=== PATIENT | female | born 1960 | race American Indian/Alaskan Native ===

== ENCOUNTER 2017-06-27 11:30 | Emergency (ER) | payer MEDICAID ==
[2017-06-27 11:38] VITALS: BP 165/96
--- NOTE | 2017-06-27 12:08 | Emergency Department Report ---
Blank Doc - Documentation Documentation: is a 57-year-old [place] female who is presenting with a right lower extruded pain. Patient states that the pain is been present for roughly 4 days as a burning sensation from the thigh all the way down to her ankle. Patient states she has some mild swelling to the ankle and lower calf. Patient denies any trauma or recent travel. Patient does however smoke which is her main risk factor for DVT. Patient was seen in urgent care prior to arrival and had an ultrasound done that indicated that she may have a DVT however no report was sent with the patient except for a subjective note stating that there was worry of an unspecified DVT. The patient denies any chest pain shortness of breath. Patient will have repeat ultrasound he did confirm location of thrombosis laboratory studies be done patient be given pain meds. Re
[2017-06-27] MEDS ORDERED: ZOFRAN IV ONE (12:09)
[2017-06-27] MEDS ORDERED: MORPHINE IV ONE (12:09)
[2017-06-27] MEDS ORDERED: TORADOL IV ONE (12:09)
[2017-06-27 12:30] LABS: Basophils % (Auto) 0.3 % (0.0-1.8); Eosinophils % (Auto) 0.6 % (0.0-4.3); Hematocrit 40.1 % (30.3-42.9); Hemoglobin 13.6 gm/dl (10.1-14.3); Lymphocytes # (Auto) 2.4 K/mm3 (1.2-5.4); Lymphocytes % (Auto) 39.9 % (13.4-35.0); Mean Corpuscular HGB Conc 34 % (30-34); Mean Corpuscular Hemoglobin 31 pg (28-32); Mean Corpuscular Volume 91 fl (79-97); Monocytes # (Auto) 0.6 K/mm3 (0.0-0.8); Monocytes % (Auto) 9.7 % (0.0-7.3); Platelet Count 223 K/mm3 (140-440); Red Blood Count 4.39 M/mm3 (3.65-5.03); Red Cell Distribution Width 15.2 % (13.2-15.2)
[2017-06-27 12:41] LABS: INR 0.79 (0.87-1.13)
[2017-06-27 12:50] LABS: BUN/Creatinine Ratio 14; Blood Urea Nitrogen 14 mg/dL (7-17); Calcium 9.5 mg/dL (8.4-10.2); Hemolysis Index 61
--- NOTE | 2017-06-27 13:53 | Emergency Department Report ---
ED Extremity Problem HPI - General Chief complaint: Extremity Injury, Lower Stated complaint: FOOT SWELLING Time Seen by Provider: 06/27/17 11:50 Source: patient Mode of arrival: Wheelchair Limitations: No Limitations - History of Present Illness Initial comments: patient is a 57-year-old Greek female who is presenting with a right lower extruded pain. Patient states that the pain is been present for roughly 4 days as a burning sensation from the thigh all the way down to her ankle. Patient states she has some mild swelling to the ankle and lower calf. Patient denies any trauma or recent travel. Patient does however smoke which is her main risk factor for DVT. Patient was seen in urgent care prior to arrival and had an ultrasound done that indicated that she may have a DVT however no report was sent with the patient except for a subjective note stating that there was worry of an unspecified DVT. The patient denies any chest pain shortness of breath. Severity scale (0 -10): 8 - Related Data Previous Rx's Medication Instructions Recorded Last Taken Type Butalb/Acetamin/Caff 50-325-40 1 each PO Q8H PRN #10 tablet 09/24/13 Unknown Rx [Fioricet] predniSONE [Deltasone] 20 mg PO QDAY #5 tab 04/09/14 Unknown Rx ALBUTEROL Inhaler [ProAir HFA 2 puff IH QID PRN #1 inhalation 02/08/15 Unknown Rx Inhaler] Azithromycin [Zithromax TAB] 250 mg PO QDAY #4 tablet 02/08/15 Unknown Rx Erythromycin [Erythromycin Ophth 1 inch OU TID #1 tube 02/08/15 Unknown Rx Oint] Ibuprofen [Motrin 600 MG tab] 600 mg PO Q8H PRN #30 tablet 04/21/15 Unknown Rx Nitrofurantoin [place]/M-Cryst 100 mg PO Q12HR #20 capsule 04/21/15 Unknown Rx [Macrobid CAP] Phenazopyridine [Pyridium] 200 mg PO BID #6 tab 04/21/15 Unknown Rx Acetaminophen/Codeine [Tylenol #3] 1 tab PO Q6H PRN #10 tab 05/07/15 Unknown Rx Cephalexin [Keflex] 500 mg PO Q6HR #20 capsule 05/07/15 Unknown Rx Ibuprofen [Motrin 800 MG tab] 800 mg PO Q8HR PRN #30 tablet 05/07/15 Unknown Rx Apixaban [Eliquis] 5 mg PO BID 30 Days tablet 06/27/17 Unknown Rx HYDROcodone/APAP 5-325 [[place] 1 each PO Q8H PRN #21 tablet 06/27/17 Unknown Rx 5-325 mg TAB] methOCARBAMOL [Robaxin TAB] 500 mg PO Q6H PRN #15 tablet 06/27/17 Unknown Rx Allergies Allergy/AdvReac Type Severity Reaction Status Date / Time diphenhydramine HCl AdvReac Nausea Verified 05/07/15 15:29 [From Benadryl] ED Review of Systems ROS: Stated complaint: FOOT SWELLING Other details as noted in HPI Comment: All other systems reviewed and negative ED Past Medical Hx - Past Medical History Hx Hypertension: Yes Hx Arthritis: Yes (RA) Additional medical history: anemia,neuropathy - Surgical History Additional Surgical History: firboid removal, hysterectomy - Social History Smoking Status: Current Every Day Smoker Substance Use Type: None - Medications Home Medications: Home Medications Medication Instructions Recorded Confirmed Last Taken Type Butalb/Acetamin/Caff 50-325-40 1 each PO Q8H PRN #10 tablet 09/24/13 02/08/15 Unknown Rx [Fioricet] predniSONE [Deltasone] 20 mg PO QDAY #5 tab 04/09/14 02/08/15 Unknown Rx ALBUTEROL Inhaler [ProAir HFA 2 puff IH QID PRN #1 inhalation 02/08/15 Unknown Rx Inhaler] Azithromycin [Zithromax TAB] 250 mg PO QDAY #4 tablet 02/08/15 Unknown Rx Erythromycin [Erythromycin Ophth 1 inch OU TID #1 tube 02/08/15 Unknown Rx Oint] Ibuprofen [Motrin 600 MG tab] 600 mg PO Q8H PRN #30 tablet 04/21/15 Unknown Rx Nitrofurantoin [place]/M-Cryst 100 mg PO Q12HR #20 capsule 04/21/15 Unknown Rx [Macrobid CAP] Phenazopyridine [Pyridium] 200 mg PO BID #6 tab 04/21/15 Unknown Rx Acetaminophen/Codeine [Tylenol #3] 1 tab PO Q6H PRN #10 tab 05/07/15 Unknown Rx Cephalexin [Keflex] 500 mg PO Q6HR #20 capsule 05/07/15 Unknown Rx Ibuprofen [Motrin 800 MG tab] 800 mg PO Q8HR PRN #30 tablet 05/07/15 Unknown Rx Apixaban [Eliquis] 5 mg PO BID 30 Days tablet 06/27/17 Unknown Rx HYDROcodone/APAP 5-325 [[place] 1 each PO Q8H PRN #21 tablet 06/27/17 Unknown Rx 5-325 mg TAB] methOCARBAMOL [Robaxin TAB] 500 mg PO Q6H PRN #15 tablet 06/27/17 Unknown Rx ED Physical Exam - General Limitations: No Limitations General appearance: alert, in no apparent distress - Head Head exam: Present: atraumatic, normocephalic - Eye Eye exam: Present: normal appearance - ENT ENT exam: Present: mucous membranes moist - Neck Neck exam: Present: normal inspection - Respiratory Respiratory exam: Present: normal lung sounds bilaterally. Absent: respiratory distress - Cardiovascular Cardiovascular Exam: Present: regular rate, normal rhythm. Absent: systolic murmur, diastolic murmur, rubs, gallop - GI/Abdominal GI/Abdominal exam: Present: soft, normal bowel sounds - Extremities Exam Extremities exam: Present: normal inspection, full ROM, tenderness (the right lower extremity mostly at the calf), calf tenderness - Back Exam Back exam: Present: normal inspection - Neurological Exam Neurological exam: Present: alert, oriented X3 - Psychiatric Psychiatric exam: Present: normal affect, normal mood - Skin Skin exam: Present: warm, dry, intact, normal color. Absent: rash ED Course Vital Signs 06/27/17 11:35 Temperature 97.7 F Pulse Rate 71 Respiratory 18 Rate Blood Pressure 165/96 O2 Sat by Pulse 98 Oximetry ED Medical Decision Making - Lab Data Result diagrams: 06/27/17 12:19 06/27/17 12:19 - Radiology Data Radiology results: report reviewed Patient had a ultrasound done by primary care of the right lower extremity. Patient has an occlusion of the posterior tibial vein only. All other veins were patent and compressible. - Medical Decision Making Patient is a 57-year-old Female who is presenting with right lower extremity pain. Patient is noted to have a DVT in the right lower extremity at the posterior tibial vein. Patient will be started on Rosette course in emergency department. Patient was given a discount card for this medication will also be sent home on pain meds. Critical care attestation.: If time is entered above; I have spent that time in minutes in the direct care of this critically ill patient, excluding procedure time. ED Disposition Clinical Impression: DVT (deep venous thrombosis) Qualifiers: DVT location: lower extremity Affected thrombotic vein of extremity: tibial Chronicity: acute Laterality: right Qualified Code(s): I82.441 - Acute embolism and thrombosis of right tibial vein Disposition: TO HOME OR SELFCARE Is pt being admited?: No Does the pt Need Aspirin: No Condition: Fair Instructions: Deep Venous Thrombosis (ED) Prescriptions: Apixaban [Eliquis] 5 mg PO BID 30 Days tablet HYDROcodone/APAP 5-325 [[place] 5-325 mg TAB] 1 each PO Q8H PRN #21 tablet PRN Reason: Pain methOCARBAMOL [Robaxin TAB] 500 mg PO Q6H PRN #15 tablet PRN Reason: Spasms Referrals: PRIMARY CARE, [Primary Care Provider] - 3-5 Days
[2017-06-27] MEDS ORDERED: ELIQUIS PO ONE (14:00)
== END 2017-06-27 14:28 | disposition home or self-care (01) ==
LOC: ED 11:30
DX: I82.441 Acute embolism and thrombosis of right tibial vein (principal); M06.9 Rheumatoid arthritis, unspecified; G62.9 Polyneuropathy, unspecified; F17.200 Nicotine dependence, unspecified, uncomplicated; Z90.710 Acquired absence of both cervix and uterus; Z86.2 Personal history of diseases of the blood and blood-forming organs and certain disorders involving the immune mechanism; Z88.8 Allergy status to other drugs, medicaments and biological substances
CPT/HCPCS: 36415; 80048; 85025; 85610; 85730; 96374; 96375; 99283; J1885; J2270; J2405

== ENCOUNTER 2017-07-03 18:24 | Emergency (ER) | payer MEDICAID ==
[2017-07-03 18:53] VITALS: BP 150/80
[2017-07-03] MEDS ORDERED: PEPCID IV ONE (18:55)
[2017-07-03] MEDS ORDERED: ADRENALIN IM ONE (18:55)
--- NOTE | 2017-07-03 19:02 | Emergency Department Report ---
Chief Complaint: Allergic Reaction Stated Complaint: ALLERGIC REACTION/ITCHING Time Seen by Provider: 07/03/17 18:58 - HPI History of Present Illness: The patient's is a 57 yo female who presents for evaluation of itching. The patient reports severe constant itching for the past 3 days, associated with red rash throughout the extremities and torso. She shares that she began new prescriptions within the past week. She submits only being allergic to Benadryl , and denies any other known allergens. The patient denies fever, denies dyspnea, chest pain, neck stiffness, dysphagia, stridor, drooling, difficulty tolerating secretions, dysphonia, hoarseness of voice, abdominal pain. - Exam Vital Signs: Vital Signs 07/03/17 18:48 Temperature 98 F Pulse Rate 83 Respiratory 22 Rate Blood Pressure 150/80 O2 Sat by Pulse 100 Oximetry MSE screening note: Focused history and physical exam performed. Due to findings the following was ordered: ED Disposition for MSE Condition: Stable
[2017-07-03 20:03] LABS: Alanine Aminotransferase 12 units/L (7-56); Albumin 3.9 g/dL (3.9-5); BUN/Creatinine Ratio 15; Blood Urea Nitrogen 12 mg/dL (7-17); Hemolysis Index 20
[2017-07-03 20:08] LABS: Basophils # (Auto) 0.1 K/mm3 (0.0-0.1); Basophils % (Auto) 1.3 % (0.0-1.8); Eosinophils % (Auto) 0.7 % (0.0-4.3); Hematocrit 39.4 % (30.3-42.9); Hemoglobin 13.1 gm/dl (10.1-14.3); Lymphocytes # (Auto) 0.9 K/mm3 (1.2-5.4); Lymphocytes % (Auto) 19.8 % (13.4-35.0); Mean Corpuscular HGB Conc 33 % (30-34); Mean Corpuscular Hemoglobin 31 pg (28-32); Mean Corpuscular Volume 92 fl (79-97); Monocytes # (Auto) 0.4 K/mm3 (0.0-0.8); Monocytes % (Auto) 10.1 % (0.0-7.3); Platelet Count 234 K/mm3 (140-440); Red Blood Count 4.28 M/mm3 (3.65-5.03)
--- NOTE | 2017-07-03 22:38 | Emergency Department Report ---
HPI - General Chief Complaint: Allergic Reaction Time Seen by Provider: 07/03/17 18:58 - HPI HPI: The patient's is a 57 yo female who presents for evaluation of itching. The patient reports severe constant itching for the past 3 days, associated with red rash throughout the extremities and torso. She shares that she began new prescriptions within the past week. She has been treated for a DVT. Patient cannot look was hydrocodone and Robaxin. She submits only being allergic to Benadryl, and denies any other known allergens. The patient denies fever, denies dyspnea, chest pain, neck stiffness, dysphagia, stridor, drooling, difficulty tolerating secretions, dysphonia, hoarseness of voice, abdominal pain. ED Past Medical Hx - Past Medical History Previous Medical History?: Yes Hx Hypertension: Yes Hx Deep Vein Thrombosis: Yes (right leg) Hx Arthritis: Yes (RA) Additional medical history: anemia,neuropathy - Surgical History Past Surgical History?: Yes Additional Surgical History: firboid removal, hysterectomy - Social History Smoking Status: Current Every Day Smoker Substance Use Type: Alcohol, Marijuana, Prescribed - Medications Home Medications: Home Medications Medication Instructions Recorded Confirmed Last Taken Type Butalb/Acetamin/Caff 50-325-40 1 each PO Q8H PRN #10 tablet 09/24/13 02/08/15 Unknown Rx [Fioricet] predniSONE [Deltasone] 20 mg PO QDAY #5 tab 04/09/14 02/08/15 Unknown Rx ALBUTEROL Inhaler [ProAir HFA 2 puff IH QID PRN #1 inhalation 02/08/15 Unknown Rx Inhaler] Azithromycin [Zithromax TAB] 250 mg PO QDAY #4 tablet 02/08/15 Unknown Rx Erythromycin [Erythromycin Ophth 1 inch OU TID #1 tube 02/08/15 Unknown Rx Oint] Ibuprofen [Motrin 600 MG tab] 600 mg PO Q8H PRN #30 tablet 04/21/15 Unknown Rx Nitrofurantoin [place]/M-Cryst 100 mg PO Q12HR #20 capsule 04/21/15 Unknown Rx [Macrobid CAP] Phenazopyridine [Pyridium] 200 mg PO BID #6 tab 04/21/15 Unknown Rx Acetaminophen/Codeine [Tylenol #3] 1 tab PO Q6H PRN #10 tab 05/07/15 Unknown Rx Cephalexin [Keflex] 500 mg PO Q6HR #20 capsule 05/07/15 Unknown Rx Ibuprofen [Motrin 800 MG tab] 800 mg PO Q8HR PRN #30 tablet 05/07/15 Unknown Rx Apixaban [Eliquis] 5 mg PO BID 30 Days tablet 06/27/17 Unknown Rx HYDROcodone/APAP 5-325 [[place] 1 each PO Q8H PRN #21 tablet 06/27/17 Unknown Rx 5-325 mg TAB] methOCARBAMOL [Robaxin TAB] 500 mg PO Q6H PRN #15 tablet 06/27/17 Unknown Rx ED Review of Systems ROS: Stated complaint: ALLERGIC REACTION/ITCHING Other details as noted in HPI Constitutional: denies: chills, fever Eyes: denies: eye pain, eye discharge, vision change ENT: denies: ear pain, throat pain Respiratory: denies: cough, shortness of breath, wheezing Cardiovascular: denies: chest pain, palpitations Endocrine: no symptoms reported Gastrointestinal: denies: abdominal pain, nausea, diarrhea Genitourinary: denies: urgency, dysuria, discharge Musculoskeletal: denies: back pain, joint swelling, arthralgia Skin: pruritus (this has improved no itching at this time). denies: rash (rash has resolved), lesions Neurological: denies: headache, weakness, paresthesias Psychiatric: denies: anxiety, depression Hematological/Lymphatic: denies: easy bleeding, easy bruising Physical Exam - Physical Exam Vital Signs: Vital Signs 07/03/17 18:48 Temperature 98 F Pulse Rate 83 Respiratory 22 Rate Blood Pressure 150/80 O2 Sat by Pulse 100 Oximetry Physical Exam: GENERAL APPEARANCE: Well developed, well nourished, in no acute distress. SKIN: Inspection of the skin reveals no rashes, ulcerations or petechiae. HEENT: The sclerae were anicteric and conjunctivae were pink and moist. Extraocular movements were intact and pupils were equal, round, and reactive to light with normal accommodation. External inspection of the ears and nose showed no scars, lesions, or masses. Lips, teeth, and gums showed normal mucosa. The oral mucosa, hard and soft palate, tongue and posterior pharynx were normal. NECK: Supple and symmetric. There was no thyroid enlargement, and no tenderness , or masses were felt. CHEST: Normal AP diameter and normal contour without any kyphoscoliosis. LUNGS: Auscultation of the lungs revealed normal breath sounds without any other adventitious sounds or rubs. CARDIOVASCULAR: There was a regular rate and rhythm without any murmurs, gallops , rubs. The carotid pulses were normal and 2+ bilaterally without bruits. Peripheral pulses were 2+ and symmetric. MUSCULOSKELETAL: Gait was normal. Tenderness to right foot EXTREMITIES: No cyanosis, clubbing or edema. NEUROLOGIC: Alert and oriented x 3. Normal affect. Gait was normal. Normal deep tendon reflexes with no pathological reflexes. Sensation to touch was normal. ED Course Vital Signs 07/03/17 18:48 Temperature 98 F Pulse Rate 83 Respiratory 22 Rate Blood Pressure 150/80 O2 Sat by Pulse 100 Oximetry ED Medical Decision Making - Lab Data Result diagrams: 07/03/17 19:21 07/03/17 19:21 Critical care attestation.: If time is entered above; I have spent that time in minutes in the direct care of this critically ill patient, excluding procedure time. ED Disposition Clinical Impression: Allergic reaction caused by a drug Qualifiers: Encounter type: initial encounter Qualified Code(s): T78.40XA - Allergy, unspecified, initial encounter Disposition: DC-01 TO HOME OR SELFCARE Is pt being admited?: No Does the pt Need Aspirin: No Condition: Stable Instructions: Allergies (ED) Additional Instructions: Please continue with the eloquent S and hydrocodone as needed. Please discontinue the Robaxin. 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 Referrals: ELIZABETH WADSWORTH MD [Primary Care Provider] - 3-5 Days Forms: Work/School Release Form(ED)
== END 2017-07-03 22:45 | disposition home or self-care (01) ==
LOC: ED 18:24
DX: T50.905A Adverse effect of unspecified drugs, medicaments and biological substances, initial encounter (principal); I10 Essential (primary) hypertension; F17.200 Nicotine dependence, unspecified, uncomplicated; F12.10 Cannabis abuse, uncomplicated; G62.9 Polyneuropathy, unspecified; Y92.89 Other specified places as the place of occurrence of the external cause
CPT/HCPCS: 36415; 80053; 85025; 96372; 96374; 96375; 99283; J0171; J2930

== ENCOUNTER 2018-08-13 10:49 | Emergency (ER) | payer MEDICAID ==
--- NOTE | 2018-08-13 11:11 | Emergency Department Report ---
Chief Complaint: Extremity Problem,Nontraumatic Stated Complaint: L ARM PAIN Time Seen by Provider: 08/13/18 11:08 - HPI History of Present Illness: la pain will not move it hx ra arguing in triage because of wait vss nad no life threat MSE screening note: Focused history and physical exam performed. Due to findings the following was ordered: ED Disposition for MSE Condition: Stable
[2018-08-13 13:27] LABS: Hematocrit 36.8 % (30.3-42.9); Hemoglobin 12.3 gm/dl (10.1-14.3); Mean Corpuscular HGB Conc 34 % (30-34); Mean Corpuscular Volume 94 fl (79-97); Platelet Count 225 K/mm3 (140-440); Red Blood Count 3.93 M/mm3 (3.65-5.03); Red Cell Distribution Width 16.4 % (13.2-15.2)
--- NOTE | 2018-08-13 13:38 | Emergency Department Report ---
ED Upper Extremity Inj HPI - General Chief Complaint: Extremity Problem,Nontraumatic Stated Complaint: L ARM PAIN Time Seen by Provider: 08/13/18 11:08 Source: patient Mode of arrival: Ambulatory Limitations: No Limitations - History of Present Illness Initial Comments: This is a 58-year-old -[place]ian female who presents with left shoulder pain nausea for 3-4 days. Past medical history of arthritis, DVT the right lower extremity, and hypertension. Patient reports shortness of breath and increased pain to the left shoulder at night. Patient states this pain is different from arthritic pain. Patient reports a pulling sensation at night and is very painful to move left upper extremity. Patient states she was seen here a month ago for an diagnosed with a DVT to the right lower extremity and started on anticoagulants. Patient stated when she followed up with her PCP Josie dates are off medication. She denies chest pain, swelling, or erythema. MD Complaint: Injury to:: left, arm Onset/Timin -: days(s) Other Extremity Injury: Shoulder: Left Other Injuries: none Handedness: right Place: home Severity scale (0 -10): 8 Improves With: none Worsens With: movement of extremity Associated Symptoms: other (SOB) Treatments Prior to Arrival: NSAIDS - Related Data Previous Rx's Medication Instructions Recorded Last Taken Type Butalb/Acetamin/Caff 50-325-40 1 each PO Q8H PRN #10 tablet 09/24/13 Unknown Rx [Fioricet] predniSONE [Deltasone] 20 mg PO QDAY #5 tab 04/09/14 Unknown Rx ALBUTEROL Inhaler (OR & NICU) 2 puff IH QID PRN #1 inhalation 02/08/15 Unknown Rx [ProAir HFA Inhaler] Phenazopyridine [Pyridium] 200 mg PO BID #6 tab 04/21/15 Unknown Rx Apixaban [Eliquis] 5 mg PO BID 30 Days tablet 06/27/17 Unknown Rx methOCARBAMOL [Robaxin TAB] 500 mg PO Q6H PRN #15 tablet 06/27/17 Unknown Rx Ibuprofen [Motrin 800 MG tab] 800 mg PO Q8HR PRN #20 tablet 08/13/18 Unknown Rx Menthol/Camphor [[place] 4 gm TP Q4H PRN #1 oint...g. 08/13/18 Unknown Rx Ointment] Allergies Allergy/AdvReac Type Severity Reaction Status Date / Time diphenhydramine HCl AdvReac Nausea Verified 05/07/15 15:29 [From Radhal] ED Review of Systems ROS: Stated complaint: L ARM PAIN Other details as noted in HPI Constitutional: denies: chills, fever Respiratory: denies: cough, shortness of breath, wheezing Cardiovascular: denies: chest pain, palpitations Gastrointestinal: denies: abdominal pain, nausea, diarrhea Musculoskeletal: arthralgia (left shoulder pain). denies: back pain, joint swelling Skin: denies: rash, lesions Neurological: denies: headache, weakness, paresthesias Psychiatric: denies: anxiety, depression ED Past Medical Hx - Past Medical History Previous Medical History?: Yes Hx Hypertension: Yes Hx Deep Vein Thrombosis: Yes (right leg) Hx Arthritis: Yes (RA) Additional medical history: anemia,neuropathy - Surgical History Past Surgical History?: Yes Additional Surgical History: firboid removal, hysterectomy - Social History Smoking Status: Current Every Day Smoker Substance Use Type: Marijuana - Medications Home Medications: Home Medications Medication Instructions Recorded Confirmed Last Taken Type Butalb/Acetamin/Caff 50-325-40 1 each PO Q8H PRN #10 tablet 09/24/13 02/08/15 Unknown Rx [Fioricet] predniSONE [Deltasone] 20 mg PO QDAY #5 tab 04/09/14 02/08/15 Unknown Rx ALBUTEROL Inhaler (OR & NICU) 2 puff IH QID PRN #1 inhalation 02/08/15 Unknown Rx [ProAir HFA Inhaler] Phenazopyridine [Pyridium] 200 mg PO BID #6 tab 04/21/15 Unknown Rx Apixaban [Eliquis] 5 mg PO BID 30 Days tablet 06/27/17 Unknown Rx methOCARBAMOL [Robaxin TAB] 500 mg PO Q6H PRN #15 tablet 06/27/17 Unknown Rx Ibuprofen [Motrin 800 MG tab] 800 mg PO Q8HR PRN #20 tablet 08/13/18 Unknown Rx Menthol/Camphor [[place] 4 gm TP Q4H PRN #1 oint...g. 08/13/18 Unknown Rx Ointment] ED Physical Exam - General Limitations: No Limitations General appearance: alert, in no apparent distress - Respiratory Respiratory exam: Present: normal lung sounds bilaterally. Absent: respiratory distress - Cardiovascular Cardiovascular Exam: Present: regular rate, normal rhythm. Absent: systolic murmur, diastolic murmur, rubs, gallop - GI/Abdominal GI/Abdominal exam: Present: soft, normal bowel sounds - Expanded Upper Extremity Exam Left Shoulder Exam: Present: tenderness over AC joint. Absent: full ROM (Limited range of motion secondary pain), tenderness, swelling, abrasion, laceration, ecchymosis, deformity, crepidus, dislocation, erythema Upper Arm exam: Present: normal inspection, full ROM Elbow exam: Present: normal inspection, full ROM Forearm Wrist exam: Present: normal inspection, full ROM Hand Wrist exam: Present: normal inspection, full ROM Neuro motor exam: Present: wrist extension intact, thumb opposition intact, thumb IP flexion intact, thumb adduction intact, fingers 2-5 abduction intact Neurosensory exam: Present: radial nerve intact, ulnar nerve intact, median ne rve intact Vascular: Present: normal capillary refill, radial pulse (+2) - Neurological Exam Neurological exam: Present: alert, oriented X3, normal gait - Psychiatric Psychiatric exam: Present: normal affect, normal mood - Skin Skin exam: Present: warm, dry, intact, normal color. Absent: rash ED Course Vital Signs 08/13/18 08/13/18 12:56 14:08 Respiratory 17 18 Rate ED Medical Decision Making - Lab Data Result diagrams: 08/13/18 12:59 08/13/18 12:59 Lab Results 08/13/18 08/13/18 08/13/18 Range/Units 12:59 12:59 14:16 WBC 3.1 L (4.5-11.0) K/mm3 RBC 3.93 (3.65-5.03) M/mm3 Hgb 12.3 (10.1-14.3) gm/dl Hct 36.8 (30.3-42.9) % MCV 94 (79-97) fl MCH 31 (28-32) pg MCHC 34 (30-34) % RDW 16.4 H (13.2-15.2) % Plt Count 225 (140-440) K/mm3 PT 12.4 (12.2-14.9) Sec. INR 0.87 (0.87-1.13) APTT 27.9 (24.2-36.6) Sec. D-Dimer 189.62 (0-234) ng/mlDDU Sodium 143 (137-145) mmol/L Potassium 3.5 L (3.6-5.0) mmol/L Chloride 110.7 H (98-107) mmol/L Carbon Dioxide 21 L (22-30) mmol/L Anion Gap 15 mmol/L BUN 9 (7-17) mg/dL Creatinine 0.9 (0.7-1.2) mg/dL Estimated GFR > 60 ml/min BUN/Creatinine Ratio 10 % Glucose 85 (65-100) mg/dL Calcium 9.1 (8.4-10.2) mg/dL Troponin T < 0.010 (0.00-0.029) ng/mL - EKG Data -: No EKG Interpreted by Me (EKG interpreted by attending) EKG shows normal: sinus rhythm Rate: normal (no STEMI) - Radiology Data Radiology results: report reviewed LEFT SHOULDER 3 views: History: Anterior shoulder pain. Normal bone mineralization. Mild osteoarthritic changes are identified at the glenohumeral joint and a.c. joint. There is no evidence for fracture, dislocation, ligamentous injury or bone lesion. The soft tissues are unremarkable. IMPRESSION: Mild osteoarthritis. - Medical Decision Making Patient was examined by me. Vitals are normal and patient is in no acute distress. Obtained a labs and x-ray of left shoulder. Mild leukopenia, all other labs unremarkable. X-ray dictated by radiologist and report reviewed by myself. Mild osteoarthritis. Patient informed of results. Start ibuprofen and tiger balm for pain. Plan discussed with patient to discharge home and treat outpatient. Patient's primary care provider is Roderick Amaya and instructed to follow up with them for referral to orthopedics. Patient discharged home in stable condition. Follow up with PCP in 2-3 days. Critical care attestation.: If time is entered above; I have spent that time in minutes in the direct care of this critically ill patient, excluding procedure time. ED Disposition Clinical Impression: Shortness of breath, Nausea Left shoulder pain Qualifiers: Chronicity: acute Qualified Code(s): M25.512 - Pain in left shoulder Osteoarthritis Qualifiers: Osteoarthritis location: shoulder Osteoarthritis type: primary Laterality: left Qualified Code(s): M19.012 - Primary osteoarthritis, left shoulder Disposition: DC-01 TO HOME OR SELFCARE Is pt being admited?: No Does the pt Need Aspirin: No Condition: Stable Instructions: Osteoarthritis (ED), Self-Care Measures with a Chronic Disease (ED) Additional Instructions: Rest Use ice or heat on affected area for 20 minutes and off for 2 hours. Take pain medication every 6-8 hours as needed for pain. Follow up with Primary Care Provider in 2-3 days. Prescriptions: Ibuprofen [Motrin 800 MG tab] 800 mg PO Q8HR PRN #20 tablet PRN Reason: Pain , Severe (7-10) Menthol/Camphor [[place] Ointment] 4 gm TP Q4H PRN #1 oint...g. PRN Reason: Pain, Moderate (4-6) Referrals: BOAZ BROWNLECANTO MD [facility] [Primary Care Provider] - 3-5 Days LLOYD HARO MD [Staff Physician] - 3-5 Days [facility] [Provider Group] - 3-5 Days [facility] [Outside] - 3-5 Days Time of Disposition: 15:42
[2018-08-13 13:46] LABS: BUN/Creatinine Ratio 10; Blood Urea Nitrogen 9 mg/dL (7-17); Calcium 9.1 mg/dL (8.4-10.2); Hemolysis Index 10
[2018-08-13] MEDS ORDERED: TORADOL IM ONE (14:02)
[2018-08-13 14:33] LABS: INR 0.87 (0.87-1.13)
[2018-08-13 14:34] LABS: Partial Thromboplastin Time 27.9 Sec. (24.2-36.6)
--- NOTE | 2018-08-13 15:10 | XRay Report ---
LEFT SHOULDER 3 views: History: Anterior shoulder pain. Normal bone mineralization. Mild osteoarthritic changes are identified at the glenohumeral joint and a.c. joint. There is no evidence for fracture, dislocation, ligamentous injury or bone lesion. The soft tissues are unremarkable. IMPRESSION: Mild osteoarthritis.
[2018-08-13] MEDS ORDERED: NORVASC PO ONE (15:53)
[2018-08-13 15:54] VITALS: BP 193/95
== END 2018-08-13 16:01 | disposition home or self-care (01) ==
LOC: ED 10:49
DX: M19.012 Primary osteoarthritis, left shoulder (principal); R06.02 Shortness of breath; R11.0 Nausea; I10 Essential (primary) hypertension; F17.200 Nicotine dependence, unspecified, uncomplicated; F12.90 Cannabis use, unspecified, uncomplicated; Z86.718 Personal history of other venous thrombosis and embolism; Z90.710 Acquired absence of both cervix and uterus; Z88.8 Allergy status to other drugs, medicaments and biological substances
CPT/HCPCS: 36415; 73030; 80048; 84484; 85027; 85379; 85610; 85730; 93005; 93010; 96372; 99284; J1885

== ENCOUNTER 2020-06-08 14:43 | Emergency (ER) | payer MEDICAID | END 2020-06-08 16:01 | disposition left against medical advice (07) | LOC: ED 14:43 | DX: R10.9 Unspecified abdominal pain (principal); Z53.21 Procedure and treatment not carried out due to patient leaving prior to being seen by health care provider ==